=== PATIENT | male | born 1995 | race Two or more races ===

== ENCOUNTER 2022-01-23 12:57 | Emergency (ER) | payer SELFPAY ==
[~2022-01-23] VITALS: Ht 157.5 cm; Wt 54.4 kg
[2022-01-23 13:00] VITALS: BP 138/86
== END 2022-01-23 15:00 | disposition left against medical advice (07) ==
LOC: ER 12:57
DX: M79.604 Pain in right leg (principal); Z53.21 Procedure and treatment not carried out due to patient leaving prior to being seen by health care provider